=== PATIENT | male | born 1995 | race Caucasian/White ===

== ENCOUNTER 2017-03-06 12:02 | Emergency (ER) | payer MEDICAID ==
[2017-03-06 15:01] VITALS: BP 135/79
== END 2017-03-06 15:01 | disposition home or self-care (01) ==
LOC: ED 12:02
DX: J98.01 Acute bronchospasm (principal); R07.89 Other chest pain; Z88.1 Allergy status to other antibiotic agents
CPT/HCPCS: J2930; J7613; J7644

== ENCOUNTER 2017-03-13 20:48 | Emergency (ER) | payer MEDICAID ==
[2017-03-13 22:34] VITALS: BP 128/79
== END 2017-03-13 22:34 | disposition home or self-care (01) ==
LOC: ED 20:48
DX: J45.901 Unspecified asthma with (acute) exacerbation (principal)
CPT/HCPCS: J7512; J7613; J7644

== ENCOUNTER 2017-06-04 21:48 | Emergency (ER) | payer MEDICAID ==
[~2017-06-04] VITALS: Ht 180.3 cm; Wt 86.2 kg
[2017-06-05 00:07] VITALS: BP 119/86
== END 2017-06-05 00:07 | disposition home or self-care (01) ==
LOC: ED 21:48
DX: R07.89 Other chest pain (principal); J45.909 Unspecified asthma, uncomplicated; Z88.8 Allergy status to other drugs, medicaments and biological substances
CPT/HCPCS: Q0092

== ENCOUNTER 2017-08-29 23:31 | Emergency (ER) | payer MEDICAID ==
[~2017-08-29] VITALS: Ht 180.3 cm; Wt 83.0 kg
[2017-08-29 23:40] VITALS: Ht 180.3 cm; Wt 83.0 kg
[2017-08-30 02:17] VITALS: BP 125/68
== END 2017-08-30 03:08 | disposition home or self-care (01) ==
LOC: ED 23:31
DX: R07.89 Other chest pain (principal); R06.00 Dyspnea, unspecified; J45.909 Unspecified asthma, uncomplicated
CPT/HCPCS: J1885; Q0092